=== PATIENT | male | born 1955 | race American Indian/Alaskan Native ===

== ENCOUNTER 2018-05-16 08:33 | Outpatient (CLI) | payer OTHER ==
--- NOTE | 2018-05-16 09:46 | Ultrasound Report ---
ULTRASOUND BLADDER RESIDUAL History: Enlarged prostate with lower urinary tract symptoms Findings: Transabdominal imaging was performed. Prevoid bladder volume measures 175 cc. Postvoid residual measures 11 cc. No obvious bladder mass or filling defect. Impression: Small postvoid residual measuring 11 cc.
== END 2018-05-16 08:34 | disposition home or self-care (01) ==
LOC: US 08:33 → EDSEX 09:00
PROVIDERS: ATTEND Urology
DX: N40.1 Benign prostatic hyperplasia with lower urinary tract symptoms (principal)
CPT/HCPCS: 76857